=== PATIENT | male | born 1970 | race Caucasian/White ===

== ENCOUNTER 2023-01-02 23:14 | Emergency (ER) | payer SELFPAY ==
[~2023-01-02] VITALS: Ht 172.7 cm; Wt 81.6 kg
[~2023-01-02 23:14] MED LIST: AMOXICILLIN500 MG PO; ATIVAN1 MG PO; CLINDAMYCIN150 MG PO; CYCLOBENZAPRINE10 MG PO; HYDROCODONE BIT1 T11 PO; KEFLEX250 MG PO; KEFLEX500 MG PO; MOTRIN800 MG PO; Motrin,Rufen800 MG PO; NKHM; PENICILLIN VK500 MG PO; SEPTRA DS 800 M1 TAB PO; TRAMADOL HCL50 MG PO; VICODIN 5/500 505 MG PO; VICODIN ES 7501 TAB PO
[2023-01-03] MEDS ORDERED: PENICILLIN VK500 MG PO ×2 (01:37→02:05)
== END 2023-01-03 01:56 | disposition home or self-care (01) ==
LOC: ED 23:14
DX: K04.7 Periapical abscess without sinus (principal)

== ENCOUNTER 2023-01-05 15:05 | Emergency (ER) | payer SELFPAY ==
[~2023-01-05] VITALS: Ht 172.7 cm; Wt 77.1 kg
[2023-01-05 16:32] LABS: HEMATOCRIT 33.5 % (42.0-52.0); MEAN CELL VOLUME 74.4 fl (80.0-94.0); MEAN CORPUSCULAR HGB 21.8 pg (27.0-31.0); MEAN CORPUSCULAR HGB CONC 29.3 g/dl (33.0-37.0); MEAN PLATELET VOLUME 8.9 fl (9.6-12.3); PLATELET COUNT AUTOMATED 488 10*3/uL (130-400); RED CELL DISTRI WIDTH 17.6 % (0-14.5); WHITE BLOOD COUNT 24.4 10*3/uL (4.8-10.8)
[2023-01-05 16:33] LABS: MANUAL DIFF REFLEX YES
[2023-01-05] MEDS ORDERED: CLEOCIN HCL300 MG PO (16:39)
[2023-01-05 16:47] LABS: ALKALINE PHOSPHATASE 74 U/L (46-116); BUN 13 mg/dl (9-23); CHLORIDE 100 mmol/L (98-107); POTASSIUM 3.8 mmol/L (3.4-5.1); SGPT/ALT 11 U/L (10-49)
[2023-01-05 16:57] LABS: ATYPICAL LYMPHS 1 % (0-0); TOTAL CELLS COUNTED 100 #CELLS
[2023-01-05 16:58] LABS: PLATELET SUFFICIENCY HIGH (NORMAL)
[2023-01-05 16:59] LABS: MICROCYTOSIS SLIGHT; POLYCHROMASIA SLIGHT
[2023-01-05] MEDS ORDERED: FLAGYL 375375 MG PO (18:43)
[2023-01-05] MEDS ORDERED: HYDROCODONE-AC1 EACH PO (18:51)
== END 2023-01-05 19:43 | disposition home or self-care (01) ==
LOC: ED 15:05
PROVIDERS: Nurse Practitioner Family
DX: K04.7 Periapical abscess without sinus (principal)

== ENCOUNTER 2023-03-05 01:51 | Emergency (ER) | payer SELFPAY ==
[~2023-03-05] VITALS: Ht 172.7 cm; Wt 86.2 kg
[~2023-03-05 01:51] MED LIST changes: +CLEOCIN HCL300 MG PO; +FLAGYL 375375 MG PO; +HYDROCODONE-AC1 EACH PO
[2023-03-05] MEDS ORDERED: ATIVAN1 MG PO ×2 (02:18→02:19)
[2023-03-05] MEDS ORDERED: OMEPRAZOLE10 MG PO (16:31)
== END 2023-03-05 02:52 | disposition home or self-care (01) ==
LOC: ED 01:51
DX: G25.81 Restless legs syndrome (principal)

== ENCOUNTER 2023-03-05 10:13 | Inpatient (IN) | payer SELFPAY ==
[~2023-03-05] VITALS: Ht 172.7 cm; Wt 84.5 kg
[2023-03-05 10:28] VITALS: BP 111/85
[2023-03-05 11:18] LABS: MANUAL DIFF REFLEX YES; MEAN CELL VOLUME 71.9 fl (80.0-94.0); MEAN CORPUSCULAR HGB 18.6 pg (27.0-31.0); MEAN CORPUSCULAR HGB CONC 25.9 g/dl (33.0-37.0); MEAN PLATELET VOLUME 9.4 fl (9.6-12.3); PLATELET COUNT AUTOMATED 403 10*3/uL (130-400); RED BLOOD COUNT 3.06 10*6/uL (4.50-5.90); RED CELL DISTRI WIDTH 16.6 % (0-14.5); WHITE BLOOD COUNT 7.1 10*3/uL (4.8-10.8)
[2023-03-05 11:52] LABS: BASOPHILS 2 % (0-1); PLATELET SUFFICIENCY HIGH (NORMAL); TOTAL CELLS COUNTED 100 #CELLS
[2023-03-05 11:53] LABS: POLYCHROMASIA SLIGHT
[2023-03-05 12:04] LABS: ABG BASE EXCESS 0.8 mmol/L (-2.0-2.0); ARTERIAL BLOOD GAS PH 7.427 (7.35-7.45); ARTERIAL BLOOD GAS PO2 72.2 (80-90)
[2023-03-05 13:05] LABS: ALKALINE PHOSPHATASE 60 U/L (46-116); BUN 11 mg/dl (9-23); CHLORIDE 106 mmol/L (98-107); POTASSIUM 3.7 mmol/L (3.4-5.1); SGPT/ALT 16 U/L (10-49); THYROID STIM HORMONE (HS) 2.368 uIU/ml (0.550-4.780); TOTAL PROTEIN 6.6 gm/dL (6.0-8.0)
[2023-03-05 13:06] LABS: ETHYL ALCOHOL < 3.0 mg/dl (<3)
[2023-03-05 13:52] VITALS: BP 129/79
[2023-03-05 14:11] LABS: BILIRUBIN Negative (Negative); BLOOD Negative (Negative); CLARITY Clear (Clear); COLOR Yellow (Yellow); GLUCOSE Negative (Negative); KETONE Negative (Negative); LEUKO ESTERASE Negative (Negative); NITRITE Negative (Negative); PH 7.5 (4.5-8.0); SPECIFIC GRAVITY <= 1.005 (1.001-1.030); UROBILINOGEN 0.2 E.U./dl (0.0-1.0)
[2023-03-05 14:18] LABS: BACTERIA TRACE; EPITHELIAL CELLS 0-2; RBC 0-2 rbc/hpf (0-2); URINE AMPHETAMINES Negative (1000ng/ml); URINE BARBITURATES Negative (200ng/ml); URINE BENZODIAZEPINES Negative (200ng/ml); URINE CANNABINOIDS (THC) Positive (50ng/ml); URINE COCAINE Negative (300ng/ml); URINE METHADONE Negative (300ng/ml); URINE OPIATES Negative (300ng/ml); URINE PHENCYCLIDINE Negative (25ng/ml); WBC 0-2 wbc/hpf (0-5)
[2023-03-05] MEDS ORDERED: OMEPRAZOLE10 MG PO (16:31)
[2023-03-05 17:40] VITALS: BP 112/68
[2023-03-05 20:00] VITALS: BP 131/66
[2023-03-06] VITALS: BP 107/73
[2023-03-06 04:34] LABS: HEMATOCRIT 21.5 % (42.0-52.0); MEAN CELL VOLUME 69.4 fl (80.0-94.0); MEAN CORPUSCULAR HGB CONC 27.4 g/dl (33.0-37.0); MEAN PLATELET VOLUME 9.2 fl (9.6-12.3); PLATELET COUNT AUTOMATED 426 10*3/uL (130-400); RED CELL DISTRI WIDTH 16.7 % (0-14.5); WHITE BLOOD COUNT 9.2 10*3/uL (4.8-10.8)
[2023-03-06 04:40] LABS: MANUAL DIFF REFLEX YES
[2023-03-06 05:01] LABS: BUN 12 mg/dl (9-23); CHLORIDE 108 mmol/L (98-107); CHOLESTEROL 141 mg/dL (<200); LDL CHOLESTEROL 81 mg/dL (9-159); POTASSIUM 3.8 mmol/L (3.4-5.1); TRIGLYCERIDES 74 mg/dl (<150)
[2023-03-06 05:04] LABS: VITAMIN D, 25-HYDROXY 34.2 ng/mL (30-100)
[2023-03-06 05:14] LABS: BASOPHILS 1 % (0-1); MICROCYTOSIS MODERATE; OVALOCYTES FEW; PLATELET SUFFICIENCY HIGH (NORMAL); TOTAL CELLS COUNTED 100 #CELLS
[2023-03-06 08:00] VITALS: BP 126/61
[2023-03-06 12:00] VITALS: BP 117/60
[2023-03-06 16:00] VITALS: BP 110/59
[2023-03-06 20:00] VITALS: BP 114/60
[2023-03-07] VITALS: BP 112/59
[2023-03-07 06:57] LABS: HEMATOCRIT 22.4 % (42.0-52.0); MEAN CELL VOLUME 70.2 fl (80.0-94.0); MEAN CORPUSCULAR HGB 18.8 pg (27.0-31.0); MEAN CORPUSCULAR HGB CONC 26.8 g/dl (33.0-37.0); MEAN PLATELET VOLUME 9.2 fl (9.6-12.3); PLATELET COUNT AUTOMATED 396 10*3/uL (130-400); RED BLOOD COUNT 3.19 10*6/uL (4.50-5.90); RED CELL DISTRI WIDTH 16.7 % (0-14.5); WHITE BLOOD COUNT 5.5 10*3/uL (4.8-10.8)
[2023-03-07 07:01] LABS: MANUAL DIFF REFLEX YES
[2023-03-07 07:39] LABS: BUN 11 mg/dl (9-23); CHLORIDE 104 mmol/L (98-107); POTASSIUM 3.5 mmol/L (3.4-5.1)
[2023-03-07 07:42] LABS: ATYPICAL LYMPHS 2 % (0-0); BASOPHILS 1 % (0-1); MICROCYTOSIS SLIGHT; OVALOCYTES FEW; PLATELET SUFFICIENCY NORMAL (NORMAL); POLYCHROMASIA SLIGHT; ROULEAUX SLIGHT; SCHISTOCYTES FEW; TARGET CELLS FEW; TOTAL CELLS COUNTED 100 #CELLS
[2023-03-07 08:00] VITALS: BP 112/65
[2023-03-07] MEDS ORDERED: LORAZEPAM0.5 M1 PO (10:35)
[2023-03-07] MEDS ORDERED: PANTOPRAZOLE SO40 MG PO (10:35)
[2023-03-07] MEDS ORDERED: LEVOFLOXACIN750 M2 PO (10:35)
[2023-03-07] MEDS ORDERED: MASON NATURAL325 MG PO (10:35)
[2023-03-07] MEDS ORDERED: Carafate1 GM PO (10:35)
[2023-03-07] MEDS ORDERED: FUROSEMIDE40 MG PO (10:35)
== END 2023-03-07 11:18 | disposition home or self-care (01) | DRG 194 ==
LOC: ED 10:13 → 5E 14:48 → EDHOLD 14:48 → 5E 16:45
PROVIDERS: Internal Medicine; Student in an Organized Health Care Education/Training Program; ADMIT Family Medicine; ATTEND Family Medicine
DX: J18.9 Pneumonia, unspecified organism (principal); E72.20 Disorder of urea cycle metabolism, unspecified; K21.9 Gastro-esophageal reflux disease without esophagitis; D50.9 Iron deficiency anemia, unspecified; F41.9 Anxiety disorder, unspecified; G47.00 Insomnia, unspecified; D75.839 Thrombocytosis, unspecified; R73.9 Hyperglycemia, unspecified; F17.210 Nicotine dependence, cigarettes, uncomplicated; Z71.6 Tobacco abuse counseling; Z79.899 Other long term (current) drug therapy

== ENCOUNTER → 2023-03-28 | Outpatient (CLI) | payer SELFPAY ==
[~2023-03-28] MED LIST changes: +Carafate1 GM PO; +FUROSEMIDE40 MG PO; +LEVOFLOXACIN750 M2 PO; +LORAZEPAM0.5 M1 PO; +MASON NATURAL325 MG PO; +OMEPRAZOLE10 MG PO; +PANTOPRAZOLE SO40 MG PO
[2023-03-28 16:48] LABS: BASO # 0.1 10*3/uL (0.0-0.1); BASO % 1.4 % (0.0-1.0); EOS # 0.3 10*3/uL (0.0-0.4); EOS % 4.4 % (1.0-4.0); HEMATOCRIT 38.8 % (42.0-52.0); MEAN CELL VOLUME 80.8 fl (80.0-94.0); MEAN CORPUSCULAR HGB 21.9 pg (27.0-31.0); MEAN CORPUSCULAR HGB CONC 27.1 g/dl (33.0-37.0); MEAN PLATELET VOLUME 9.1 fl (9.6-12.3); MONO # 0.6 10*3/uL (0.1-1.0); MONO % 10.4 % (3.0-9.0); NEUT # 2.7 10*3/uL (2.3-7.9); NEUT % 47.6 % (47.0-73.0); PLATELET COUNT AUTOMATED 470 10*3/uL (130-400); RED CELL DISTRI WIDTH 27.3 % (0-14.5); WHITE BLOOD COUNT 5.7 10*3/uL (4.8-10.8)
[2023-03-28 17:07] LABS: BUN 11 mg/dl (9-23); CHLORIDE 102 mmol/L (98-107); POTASSIUM 3.8 mmol/L (3.4-5.1)
== END | disposition home or self-care (01) ==
LOC: RESCLI 14:26
PROVIDERS: Internal Medicine; ATTEND Family Medicine
DX: D64.9 Anemia, unspecified (principal); K92.2 Gastrointestinal hemorrhage, unspecified; K21.9 Gastro-esophageal reflux disease without esophagitis; F41.9 Anxiety disorder, unspecified; R60.0 Localized edema; Z12.9 Encounter for screening for malignant neoplasm, site unspecified; G25.81 Restless legs syndrome; Z82.49 Family history of ischemic heart disease and other diseases of the circulatory system; Z12.5 Encounter for screening for malignant neoplasm of prostate; Z98.890 Other specified postprocedural states; Z91.89 Other specified personal risk factors, not elsewhere classified; F17.210 Nicotine dependence, cigarettes, uncomplicated; Z79.899 Other long term (current) drug therapy

== ENCOUNTER 2023-04-12 01:41 | Emergency (ER) | payer SELFPAY ==
[~2023-04-12] VITALS: Ht 172.7 cm; Wt 83.9 kg
== END 2023-04-12 02:00 | disposition home or self-care (01) ==
LOC: ED 01:41
DX: B02.9 Zoster without complications (principal); R07.89 Other chest pain; F17.200 Nicotine dependence, unspecified, uncomplicated; Z79.2 Long term (current) use of antibiotics; Z79.899 Other long term (current) drug therapy; Z98.890 Other specified postprocedural states

== ENCOUNTER → 2023-05-29 | Outpatient (CLI) | payer SELFPAY | END | disposition home or self-care (01) | LOC: RESCLI 12:50 | PROVIDERS: ATTEND Internal Medicine | DX: F41.9 Anxiety disorder, unspecified (principal); R60.0 Localized edema; D64.9 Anemia, unspecified; K21.9 Gastro-esophageal reflux disease without esophagitis; K92.2 Gastrointestinal hemorrhage, unspecified; G25.81 Restless legs syndrome; Z91.89 Other specified personal risk factors, not elsewhere classified; Z98.890 Other specified postprocedural states; Z79.899 Other long term (current) drug therapy ==

== ENCOUNTER → 2023-08-28 | Outpatient (CLI) | payer SELFPAY | END | disposition home or self-care (01) | LOC: RESCLI 13:05 | PROVIDERS: ATTEND Internal Medicine | DX: F41.9 Anxiety disorder, unspecified (principal); G25.81 Restless legs syndrome; R60.0 Localized edema; K21.9 Gastro-esophageal reflux disease without esophagitis; K92.2 Gastrointestinal hemorrhage, unspecified; Z98.890 Other specified postprocedural states; Z82.49 Family history of ischemic heart disease and other diseases of the circulatory system; Z79.899 Other long term (current) drug therapy ==

== ENCOUNTER → 2023-11-20 | Outpatient (CLI) | payer SELFPAY | END | disposition home or self-care (01) | LOC: RESCLI 13:39 | PROVIDERS: ATTEND Student in an Organized Health Care Education/Training Program | DX: K21.9 Gastro-esophageal reflux disease without esophagitis (principal); F41.9 Anxiety disorder, unspecified; K92.2 Gastrointestinal hemorrhage, unspecified; G25.81 Restless legs syndrome; R60.0 Localized edema; Z12.2 Encounter for screening for malignant neoplasm of respiratory organs; Z82.49 Family history of ischemic heart disease and other diseases of the circulatory system; Z79.899 Other long term (current) drug therapy ==

== ENCOUNTER → 2024-02-19 | Outpatient (CLI) | payer SELFPAY | END | disposition home or self-care (01) | LOC: RESCLI 12:53 | PROVIDERS: ATTEND Internal Medicine | DX: F41.9 Anxiety disorder, unspecified (principal); K21.9 Gastro-esophageal reflux disease without esophagitis; M32.9 Systemic lupus erythematosus, unspecified; M25.511 Pain in right shoulder; G25.81 Restless legs syndrome; R60.0 Localized edema; D64.9 Anemia, unspecified; Z82.49 Family history of ischemic heart disease and other diseases of the circulatory system; Z79.899 Other long term (current) drug therapy ==

== ENCOUNTER 2024-09-01 19:34 | Emergency (ER) | payer SELFPAY ==
[~2024-09-01] VITALS: Ht 177.8 cm; Wt 79.4 kg
== END 2024-09-01 20:33 | disposition left against medical advice (07) ==
LOC: ED 19:34
DX: K62.5 Hemorrhage of anus and rectum (principal); Z53.21 Procedure and treatment not carried out due to patient leaving prior to being seen by health care provider

== ENCOUNTER → 2025-01-12 | Outpatient (CLI) | payer SELFPAY | END | disposition home or self-care (01) | LOC: RESCLI 08:21 | PROVIDERS: ATTEND Internal Medicine | DX: G25.81 Restless legs syndrome (principal); Z79.899 Other long term (current) drug therapy ==